=== PATIENT | male | born 1995 | race Caucasian/White ===

== ENCOUNTER 2016-06-02 21:31 | Emergency (ER) | payer OTHER | END 2016-06-02 22:08 | disposition home or self-care (01) | LOC: ER 21:31 | DX: H01.002 Unspecified blepharitis right lower eyelid (principal); H01.005 Unspecified blepharitis left lower eyelid; B99.9 Unspecified infectious disease; H10.89 Other conjunctivitis; F17.210 Nicotine dependence, cigarettes, uncomplicated; Z88.8 Allergy status to other drugs, medicaments and biological substances ==